=== PATIENT | male | born 1960 | race Caucasian/White ===

== ENCOUNTER 2023-11-01 21:09 | Emergency (ER) | payer MEDICARE, SELFPAY ==
--- NOTE | ~2023-11-01 | XR_ITS ---
Portable chest x-ray Comparison: None Clinical History: Trauma Findings: Right-sided central venous line in satisfactory position. Possible retrocardiac consolidat ion. Right lung clear. Cardiomediastinal silhouette is enlarged. Bones and soft tissues are unremark able. Impression: Left lower lobe pneumonia suspected. Cardiomegaly. Support line, as above. Reviewed, dictated and finalized at location . Impression: Left lower lobe pneumonia suspected. Cardiomegaly. Support line, as above.
--- NOTE | ~2023-11-01 | CT_ITS ---
[facility]: 11/01/2023 23:22 INDICATION: Trauma. TECHNIQUE: Computed tomography (CT) of the chest, abdomen, pelvis, thoracic spine, and lumbar spine w as performed with 100 mL Omnipaque 350 intravenous contrast. Automated exposure control and iterative reconstruction technique were employed. The dose-length product was 1572.31 mGy-cm. COMPARISON: None FINDINGS: CT CHEST: The lungs demonstrate mild atelectasis. No pleural effusion. There is a right internal jugu lar port with tip at superior cavoatrial junction. The heart size is normal. No pericardial effusion. There is a 3.5 x 2.0 cm pericardial cyst on the left. There is an old healed fracture of right scapu la. CT ABDOMEN AND PELVIS: The liver, gallbladder, and spleen are normal. There are cysts in the pancreas measuring up to 8 mm. The adrenal glands and left kidney are normal. There are peripelvic cysts righ t kidney measuring up to 2.1 cm. There is a Klein catheter in expected position. The prostate is mild ly enlarged. The appendix is normal. There are no dilated loops of bowel. Aortic atherosclerosis is n oted. There are no pathologically enlarged lymph nodes. There is no ascites. CT THORACIC SPINE: There is 5 degrees dextrocurvature of thoracic spine. There is kyphosis of thoraci c spine. There is a compression fracture of T5 with 1/5 loss of height. There is mild chronic anterio r wedging of T7 and T10 vertebral bodies. There is mildly decreased disc height at multiple levels. T here is mild facet joint osteoarthritis at many levels. No neural foraminal stenosis. There is mild c entral canal stenosis in mid thoracic spine secondary to epidural lipomatosis. CT LUMBAR SPINE: Bone alignment is normal. Vertebral body heights are normal and intervertebral disc heights are normal. There is multilevel mild facet joint osteoarthritis. No neural foraminal stenosis . The discs are bulging from L3-L4 through L5-S1 with mild bilateral neural foraminal stenosis and mi ld central canal stenosis. IMPRESSION: 1. Age-indeterminate T5 compression fracture. 2. Pancreatic cysts measuring up to 8 mm. The differential diagnosis includes pseudocyst, intraductal papillary mucinous neoplasm (IPMN), mucinous cystic neoplasm (MCN), serous cystadenoma, and neuroend ocrine tumor. Consider abdomen MRI without and with contrast in two years. Reviewed, dictated and finalized at location E. IMPRESSION: 1. Age-indeterminate T5 compression fracture. 2. Pancreatic cysts measuring up to 8 mm. The differential diagnosis includes p seudocyst, intraductal papillary mucinous neoplasm (IPMN), mucinous cystic neop lasm (MCN), serous cystadenoma, and neuroendocrine tumor. Consider abdomen MRI without and with contrast in two years.
--- NOTE | ~2023-11-01 | CT_ITS ---
EXAMINATION: CT cervical spine wo con DATE: 11/01/2023 23:16 INDICATION: Neck injury. TECHNIQUE: Computed tomography (CT) of the cervical spine was performed without intravenous contrast. Automated exposure control and iterative reconstruction technique were employed. The dose-length pro duct was 463.84 mGy-cm. COMPARISON: None FINDINGS: There is a right internal jugular central venous catheter. Bone alignment is normal. Verteb ral body heights are normal. There is mildly decreased disc height from C3-C4 through C5-C6. There is severely decreased disc height at C6-C7 with interbody fusion. The following disc levels are specifi ashley discussed: C2-C3: There is mild bilateral uncovertebral joint osteoarthritis. There is severe right and mild lef t facet joint osteoarthritis. There is no neural foraminal stenosis. There is no central canal stenos is. C3-C4: There is mild bilateral uncovertebral joint osteoarthritis. There is severe right and mild lef t facet joint osteoarthritis. There is no neural foraminal stenosis. There is no central canal stenos is. C4-C5: There is mild bilateral uncovertebral joint osteoarthritis. There is mild bilateral facet join t osteoarthritis. There is no neural foraminal stenosis. There is no central canal stenosis. C5-C6: There is no uncovertebral joint osteoarthritis. There is no facet joint osteoarthritis. There is no neural foraminal stenosis. There is mild central canal stenosis. C6-C7: There is no uncovertebral joint hypertrophy. There is no facet joint hypertrophy. There is no neural foraminal stenosis. There is no central canal stenosis. C7-T1: There is no uncovertebral joint osteoarthritis. There is severe bilateral facet joint osteoart hritis. There is no neural foraminal stenosis. There is no central canal stenosis. IMPRESSION: 1. No fracture. 2. Mild cervical spondylosis. Reviewed, dictated and finalized at location E.
--- NOTE | ~2023-11-01 | CT_ITS ---
EXAMINATION: CT brain wo con DATE: 11/01/2023 23:16 INDICATION: Trauma. TECHNIQUE: Computed tomography (CT) of the head was performed without intravenous contrast. The mA wa s adjusted according to patient size. Iterative reconstruction technique was employed. The dose-lengt h product was 681.00 mGy-cm. COMPARISON: None FINDINGS: There is an ill-defined mass in the left frontoparietal region with calcifications. There i s diffuse decreased attenuation in the left cerebral white matter. There is volume loss of the left c erebral hemisphere with ex vacuo dilatation of left lateral ventricle. There are old infarcts involvi ng the left thalamus and left basal ganglia. There is old infarct in left temporal lobe. There is a m ild distribution of decreased attenuation in the right frontal lobe deep white matter. There is no ac alverto ischemic infarct or intracranial hemorrhage. There are changes of left-sided craniotomy. The para nasal sinuses are clear. There are likely changes of ocular lens replacement surgeries. There is a sm all right mastoid effusion. IMPRESSION: 1. Ill-defined mass in the left frontoparietal region, consistent with glioma. 2. Volume loss and white matter low-attenuation involving the left cerebral hemisphere, consistent wi treatment changes. 3. Old infarcts involving the left thalamus, left basal ganglia, and left temporal lobe. Reviewed, dictated and finalized at location E. IMPRESSION: 1. Ill-defined mass in the left frontoparietal region, consistent with glioma. 2. Volume loss and white matter low-attenuation involving the left cerebral hem isphere, consistent with treatment changes. 3. Old infarcts involving the left thalamus, left basal ganglia, and left tempo ral lobe.
[2023-11-01 21:13] VITALS: BP 141/84; PULSE 77; RESP 19; TEMP 36.5; O2SAT 100
--- NOTE | 2023-11-01 21:20 | PC.NURSE ---
Patient comes to ED with two bandages on his right arm dated on 10/31/2023
--- NOTE | 2023-11-01 21:34 | ED.FALL ---
HPI - Fall General Chief Complaint: Fall Stated Complaint: fall Time Seen by Provider: 11/01/23 21:21 Source: family Limitations: other (Aphasia) History of Present Illness HPI Narrative: Patient is a 63-year-old male presents to the emergency department for a fall accompanied by . With is primary historian due to patient having chronic aphasia however patient is able to point to areas and provide yes or no. states that the patient fell out of bed at his assisted living center today prior to arrival, unsure how long he was on the ground, unsure of loss of consciousness, had padding on the ground as patient has been falling frequently and patient was noted to be on his stomach. Patient has chronic right upper and right lower extremity lack of functional capacity and has a history of glioblastoma status post surgery and is known to [facility] for primary care and [facility] for oncology. Patient admits to right lower quadrant abdominal pain. notes patient has chronic skin tears that are unchanged. Tetanus is up-to-date. notes the patient is on Eliquis for blood clots. states the patient is at his baseline mentation and functional capacity. Related Data Home Medications Medication Instructions Recorded Confirmed acetaminophen 325 mg tablet 650 mg PO Q6H PRN pain 10/07/23 10/30/23 amlodipine 10 mg tablet 10 mg PO 0600 10/07/23 10/30/23 apixaban 5 mg tablet 5 mg PO BID 10/07/23 10/30/23 dexamethasone 1.5 mg tablet 1.5 mg PO DAILY 10/07/23 10/30/23 famotidine 20 mg tablet 20 mg PO DAILY 10/07/23 10/30/23 lamotrigine 25 mg tablet 50 mg PO BID 10/07/23 10/30/23 levetiracetam 1,000 mg tablet 1,500 mg PO BID 10/07/23 10/30/23 olmesartan 40 mg tablet 40 mg PO DAILY 10/07/23 10/30/23 prochlorperazine maleate 10 mg 10 mg PO Q6H PRN nausea and 10/07/23 10/30/23 tablet (Compazine) vomiting quetiapine 25 mg tablet (Seroquel) 12.5 mg PO HS 10/07/23 10/30/23 Allergies Allergy/AdvReac Type Severity Reaction Status Date / Time niacin Allergy Rash Verified 10/07/23 20:51 pollen extracts Allergy Sneezing Verified 10/07/23 20:51 ragweed pollen Allergy Sneezing Verified 10/07/23 20:51 Review of Systems Review of Systems: All systems reviewed & are unremarkable except as noted in HPI and below PMFSH Social History Social History Alcohol intake: never Substance use: never Do You Feel Safe in your Home?: Yes Lack of Transportation: No Lack of Food: Never True Current Housing: I Have Housing Concerned About Future Housing: No Difficulty Paying Gas/Electric Bills: No Difficulty Paying for Meds: No Currently Unemployed: No Education: Bachelor's Degree Difficulty w/ Childcare or Family Care: No Spiritual care concerns: No Comments At time of signature, I have reviewed and agree with nursing past medical, surgical, social and family history unless otherwise noted. Please see the nursing chart for further information. There is no relevant family history pertinent to the presenting complaint. Exam Narrative: CONST: No acute distress. HENMT: Prior cranial surgery scars appear well healed. Moist mucous membranes. No posterior oropharynx erythema. EYES: No conjunctival icterus, injection, or pallor. PERRL. RESP: Normal respiratory effort. CTAB. CARDIO: Regular rate. Regular rhythm. 2+ DP and radial pulses bilaterally. GI: Nondistended. No tenderness to palpation. Soft. : No CVA tenderness to palpation. SKIN: No rashes or lesions noted on exposed skin. Multiple small hemostatic superficial skin tears of the right upper and right lower extremity. NEURO: Follows basic commands appropriately. EXTREM/MSK/BACK: Bilateral 2+ lower extremity pitting edema. Patient is able to dorsiflex and plantar flex his left ankle and is not able to do so on the right side which is chronic for the patient. Patient has good reamer hand strength of the left arm it is not reproduced on the right side which is chronic fo
--- NOTE | 2023-11-01 21:35 | ECG_ITS ---
SEE SCANNED COPY FOR CONFIRMED REPORT MTDD
[2023-11-01 22:03] LABS: Basophils Percent Auto 0.4 % (0.2-1.2); Hematocrit 36.5 % (42.0-52.0); Hemoglobin 11.2 g/dL (14.0-18.0); Immature Granulocyte Absolute 0.43 K/mm3 (0.00-0.031); Immature Granulocyte Percent A 4.8 % (0-0.5); Lymphocytes Absolute Auto 0.84 K/mm3 (0.9-3.2); Lymphocytes Percent Auto 9.3 % (18.3-44.2); Mean Corpuscular HGB Conc 30.7 g/dl (32-36); Mean Corpuscular Volume 94.6 fl (80-100); Mean Platelet Volume 8.4 fl (7.4-10.4); Monocytes Absolute Auto 0.6 K/mm3 (0.1-0.6); Monocytes Percent Auto 6.3 % (2.6-8.5); Neutrophils Absolute Auto 7.2 K/mm3 (1.3-6.7); Neutrophils Percent Auto 79.2 % (45.5-73.1); Nucleated Red Blood Cells Perc 0.2 % (0.0-0.2); Platelet Count Result 286 k/mm3 (150-375); Red Blood Count 3.86 M/mm3 (4.6-6.20); Red Cell Distribution Width 15.2 % (11.5-14.5); White Blood Count 9.1 K/mm3 (4.5-10.0)
[2023-11-01] MEDS: ACETAMINOPHEN 500 MG TABLET 1000 MG PO (22:10)
[2023-11-01 22:14] LABS: INR 1.2; Partial Thromboplastin Time 23.4 Seconds (22.3-36.8); Prothrombin Time 15.4 Seconds (11.1-14.7)
[2023-11-01 22:26] LABS: Alanine Aminotransferase 33 U/L (6-50); Albumin Level 3.4 g/dL (3.5-5.1); Alkaline Phosphatase 73 U/L (38-126); Anion Gap 7 mmol/L (4-12); Aspartate Amino Transferase 27 U/L (17-59); Bilirubin,Total 0.6 mg/dL (0.2-1.3); Blood Urea Nitrogen 20 mg/dL (9-20); Carbon Dioxide 24 mmol/L (22-30); Chloride 110 mmol/L (98-107); Creatine Kinase 41 U/L (55-170); Estimated CRCL calculation 83 ml/min; Estimated Glomerular Filt Rate > 60; Glucose 131 mg/dL (65-110); Potassium 4.4 mmol/L (3.4-5.0); Sodium 141 mmol/L (137-145)
[2023-11-01 22:47] LABS: Appearance Urine Clear (Clear); Bacteria Urine None Seen /hpf; Bilirubin Urine Negative (Negative); Blood Urine Non-Hemolyzed Trace (Negative); Color Urine Yellow (Yellow); Glucose Urine UA Negative (Negative); Ketones Urine Negative (Negative); Leukocyte Esterase Ur 1+ LEU/UL (Negative); Nitrate Urine Negative (Negative); Non Pathogenic Casts 0-2; Protein Urine Negative (Negative); Specific Grav Ur 1.018 (1.001-1.035); Squamous Epithelial Cell Urine None Seen /hpf (Few)
[2023-11-01 22:52] LABS: Add Urine Microscopic? YES
[2023-11-01 22:57] LABS: Thyroid Stimulating Hormone Reflex 0.406 uIU/mL (0.465-4.68)
[2023-11-01 23:12] VITALS: BP 132/75; PULSE 73; RESP 16; O2SAT 98
[2023-11-01 23:38] LABS: Free T4 Free Thyroxine Reflex 1.09 ng/dL (0.78-2.19)
[2023-11-02 00:21] LABS: Total Triiodothyronine (T3) 0.85 NG/ML (0.97-1.69)
[2023-11-02 01:17] VITALS: BP 125/69; PULSE 76; RESP 25; O2SAT 99
[2023-11-02 02:38] VITALS: BP 135/76; PULSE 65; RESP 18; O2SAT 99
== END 2023-11-02 02:39 ==
PROVIDERS: Emergency Provider Student in an Organized Health Care Education/Training Program; PCP Family Medicine
DX: R33.9 Retention of urine, unspecified (principal); C71.9 Malignant neoplasm of brain, unspecified; I10 Essential (primary) hypertension; R47.01 Aphasia; Z86.73 Personal history of transient ischemic attack (TIA), and cerebral infarction without residual deficits; Z86.718 Personal history of other venous thrombosis and embolism; Z98.49 Cataract extraction status, unspecified eye; Z85.828 Personal history of other malignant neoplasm of skin; Z79.01 Long term (current) use of anticoagulants; K86.2 Cyst of pancreas; M47.812 Spondylosis without myelopathy or radiculopathy, cervical region; R91.8 Other nonspecific abnormal finding of lung field; I51.7 Cardiomegaly; W06.XXXA Fall from bed, initial encounter
CPT/HCPCS: 36415; 51702; 70450; 71045; 71260; 72125; 72129; 72132; 74177; 80053; 81001; 82550; 83605; 84439; 84443; 84480; 85025; 85610; 85730; 87086; 93005; 99284; A9270; Q9967

== ENCOUNTER 2023-11-16 12:54 | Emergency (ER) | payer MEDICARE, SELFPAY ==
--- NOTE | ~2023-11-16 | XR_ITS ---
Right foot Technique: AP, oblique, and lateral views were obtained. Clinical History: Hematoma Findings: No acute fracture or dislocation is seen. Osseous alignment is anatomic. Joint spaces are p reserved without erosive or degenerative change. There is marked soft tissue swelling or mass over th e dorsal aspect of the foot. Impression: No acute osseous or articular abnormality. Soft tissue swelling and/or mass over the dorsal aspect of the foot, which could be compatible with t he provided history of hematoma. Reviewed, dictated and finalized at location M. Impression: No acute osseous or articular abnormality. Soft tissue swelling and/or mass over the dorsal aspect of the foot, which coul d be compatible with the provided history of hematoma.
[2023-11-16 13:02] VITALS: BP 124/73; PULSE 70; RESP 12; TEMP 36.5; O2SAT 97
[2023-11-16 13:56] VITALS: BP 135/82; PULSE 70; RESP 17; O2SAT 99
--- NOTE | 2023-11-16 14:11 | ED.SKABFB ---
HPI - Skin/Abscess/Foreign Bdy General Chief complaint: Skin/Abscess/Foreign Body Stated complaint: wound to foot Time Seen by Provider: 11/16/23 13:54 Source: patient and family Mode of arrival: EMS Limitations: clinical condition and dementia History of Present Illness HPI narrative: Patient is a 63 y/o male who presents to the ED via EMS with report of right foot injury. Family at bedside assisted in providing information. 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 Patient is a resident of a local detention facility. Family reports they noticed bruising and swelling to right dorsal foot over the last couple of days. Denies any known injury. Family member does report that patient frequently wedges his foot underneath of his wheelchair foot rest. Patient does complain of pain to this foot, though family member reports he frequently complains of pain to the right leg. Has chronic swelling and weeping of this leg. Patient is currently on Eliquis due to history of previous blood clots. Related Data Home Medications Medication Instructions Recorded Confirmed acetaminophen 325 mg tablet 650 mg PO Q6H PRN pain 10/07/23 11/13/23 amlodipine 10 mg tablet 10 mg PO 0600 10/07/23 11/13/23 apixaban 5 mg tablet 5 mg PO BID 10/07/23 11/13/23 dexamethasone 1.5 mg tablet 1.5 mg PO DAILY 10/07/23 11/13/23 famotidine 20 mg tablet 20 mg PO DAILY 10/07/23 11/13/23 lamotrigine 25 mg tablet 50 mg PO BID 10/07/23 11/13/23 levetiracetam 1,000 mg tablet 1,500 mg PO BID 10/07/23 11/13/23 olmesartan 40 mg tablet 40 mg PO DAILY 10/07/23 11/13/23 prochlorperazine maleate 10 mg 10 mg PO Q6H PRN nausea and 10/07/23 11/13/23 tablet (Compazine) vomiting quetiapine 25 mg tablet (Seroquel) 12.5 mg PO HS 10/07/23 11/13/23 Allergies Allergy/AdvReac Type Severity Reaction Status Date / Time niacin Allergy Rash Verified 11/16/23 13:58 pollen extracts Allergy Sneezing Verified 11/16/23 13:58 ragweed pollen Allergy Sneezing Verified 11/16/23 13:58 Review of Systems Review of Systems: CONSTITUTIONAL: Denies fever, chills, or sweats. MUSCULOSKELETAL: See HPI. NEUROLOGIC: Denies headache, dizziness, numbness, or weakness. All systems reviewed & are unremarkable except as noted in HPI and below [facility] Past Medical History Medical History Glioblastoma H/O: CVA (cerebrovascular accident) Right hemiparesis Social History Social History Alcohol intake: never Substance use: never Do You Feel Safe in your Home?: Yes Lack of Transportation: No Lack of Food: Never True Current Housing: I Have Housing Concerned About Future Housing: No Difficulty Paying Gas/Electric Bills: No Difficulty Paying for Meds: No Currently Unemployed: No Education: Bachelor's Degree Difficulty w/ Childcare or Family Care: No Spiritual care concerns: No Exam Narrative: GENERAL: Chronically ill appearing, obese with BMI of 34.4, non-toxic, in no acute distress. HEAD: Normocephalic, atraumatic. RESPIRATORY: Airway patent, respirations nonlabored. Clear to auscultation bilaterally, no rales, rhonchi, wheezing. CARDIOVASCULAR: Regular rate and rhythm without murmurs, rubs, or gallops. Pedal pulses 2+ bilaterally. MUSCULOSKELETAL: Hemiparesis to right side related to previous CVA. Lower extremities have mild pitting edema bilaterally, some areas of weeping and blistering on right lower extremity. Sensation is intact throughout right lower extremity. Right dorsal foot with whole large hematoma versus blood blister, feels very fluctuant, no firm/induration. Small skin tear present over blister/hematoma. Soft tissue swelling of dorsal foot, bruising present over dorsal foot, extending into toes. SKIN: Warm, dry, normal color. NEURO: Alert, speech intermittently aphasic. No ataxic movements
[2023-11-16] MEDS: CEPHALEXIN 500 MG CAPSULE PO (15:28)
== END 2023-11-16 15:57 | disposition home or self-care (01) ==
PROVIDERS: Emergency Provider Physician Assistant; PCP Family Medicine
DX: M79.89 Other specified soft tissue disorders (principal); S90.821A Blister (nonthermal), right foot, initial encounter; I69.951 Hemiplegia and hemiparesis following unspecified cerebrovascular disease affecting right dominant side; Z79.01 Long term (current) use of anticoagulants; X58.XXXA Exposure to other specified factors, initial encounter; Z85.841 Personal history of malignant neoplasm of brain
CPT/HCPCS: 73630; 99283; A9270